=== PATIENT | male | born 1935 | race Caucasian/White ===

== ENCOUNTER 2018-03-01 10:45 | Inpatient (IN) ==
[2018-03-01] MEDS: *HR* Enoxaparin 30 MG/0.3 ML SYRINGE SQ SCH (20:19)
[2018-03-01] MEDS: Aspirin 81 MG TAB.CHEW PO SCH (20:19)
[2018-03-01] MEDS ORDERED: DOXYCYCLINE HYCLATE 50 MG PO SCH (21:00)
[2018-03-02] MEDS: *HR* Enoxaparin 30 MG/0.3 ML SYRINGE SQ SCH ×2 (04:28→16:17)
[2018-03-02 05:49] LABS: Basophils % 0.4 %; Eosinophils # 0.1 K/mcL (0.0-0.6); Eosinophils % 0.5 %; Hematocrit 31.9 % (37.5-50.1); Immature Granulocytes % 0.4 % (0-4); Lymphocytes # 2.2 K/mcL (0.6-4.6); Lymphocytes % 19.6 %; Mean Corpuscular HGB Conc 34.5 g/dL (31.6-35.5); Mean Corpuscular Hemoglobin 32.4 pg (28.0-33.3); Mean Corpuscular Volume 94.1 fL (83.0-100.0); Mean Platelet Volume 9.1 fL (9.4-12.4); Monocytes # 1.6 K/mcL (0.0-1.3); Monocytes % 14.2 %; Neutrophils # 7.2 K/mcL (1.6-8.9); Platelet Count 248 K/mcL (140-400); Red Blood Count 3.39 M/mcL (4.19-5.50); Red Cell Distribution Width 13.3 % (11.5-14.5); Segmented Neutrophils % 64.9 %
[2018-03-02 05:50] LABS: INR 1.2; Prothrombin Time 13.2 Seconds (9.4-12.1)
[2018-03-02 06:02] LABS: Alanine Aminotransferase 16 Units/L (7-52); Albumin 3.3 g/dL (3.5-5.7); Albumin/Globulin Ratio 1.3 (1.1-2.2); Alkaline Phosphatase 55 Units/L (34-104); Aspartate Amino Transferase 19 Units/L (13-39); BUN/Creatinine Ratio 15 (6-26); Bilirubin,Total 1.5 mg/dL (0.3-1.0); Blood Urea Nitrogen 16 mg/dL (8-23); Calcium 8.9 mg/dL (8.6-10.3); Carbon Dioxide 25 mEq/L (23-29); Chloride 103 mEq/L (98-107); Globulin 2.5 g/dL (2.4-3.5); Glucose 135 mg/dL (70-105); Osmolality,Calculated 287 (280-300); Potassium 3.8 mEq/L (3.5-5.1); Sodium 137 mEq/L (136-145); Total Protein 5.8 g/dL (6.4-8.9); eGFR For Non-African Americans > 60 (> 60)
[2018-03-02] MEDS: Cholecalciferol (D-3) 1,000 UNIT TABLET PO SCH (08:21)
[2018-03-02] MEDS: Aspirin 81 MG TAB.CHEW PO SCH ×2 (08:21→21:02)
[2018-03-02] MEDS: Multivit/Ca/Min/Fe/FA 1 TAB TABLET PO SCH (08:21)
[2018-03-02] MEDS ORDERED: (Memantine Hcl [Namenda Xr] 28 MG) PO SCH (09:00)
[2018-03-02] MEDS ORDERED: (Omega-3/Dha/Epa/Fish Oil [Fish Oil 1,000 Mg Softgel]) PO SCH (09:00)
--- NOTE | 2018-03-02 15:31 | Internal Med History&Physical ---
Date of Encounter: 03/02/18 Time of Encounter: 15:25 Assessment and Plan (1) Status post left hip replacement Current visit: Yes Status: Acute PT, OT, RT, will involve PM&R. (2) Normocytic anemia Current visit: Yes Status: Chronic Potentially due to blood loss from surgery. Will continue to monitor and obtain further studies as appropriate. (3) Hypertension Current visit: Yes Status: Acute Resume home losartan. Will continue to monitor BP and adjust regimen as appropriate. Qualifiers: Qualified Code(s): I10 - Essential (primary) hypertension (4) Hyperlipidemia Current visit: Yes Status: Chronic Resume home simvastatin. Qualifiers: Qualified Code(s): E78.5 - Hyperlipidemia, unspecified (5) Alzheimer disease Current visit: Yes Status: Chronic Resume home donepezil. Qualifiers: Qualified Code(s): G30.8 - Other Alzheimer's disease; F02.81 - Dementia in other diseases classified elsewhere with behavioral disturbance Internal Medicine - H&P: HPI Chief complaint: Rehab Admitted From: Hospital to Hospital Transfer Plans for Post Hospital Care: Home History of present illness: Mr. Tracy is a 82 year old male who is now admitted to our facility for rehabil itation after having a left hip replacement done at the [facility]. At the time of this encounter, there was no discharge summary from the [facility]. However, patient has no particular complaint. Patient reports no recent fever, chills, CP, palpitations, SOB, n/v, seizure, syncope, bruising, or bleeding symptoms. Past Med Surg Social Fam HX - Past Medical History Medical history: dementia, hypertension - Past Surgical History Surgical History: hip replacement, prostatectomy Additional surgical history: 2012 prostate removed, hernia repair 2013. right hip 2003 arthritis - Social History Smoking Status: Never smoker Alcohol use: none Drug use: none - Additional Family History Additional family history: Both grandfathers had cancer, but unclear which type. Internal Medicine - H&P: Meds Acetaminophen [Extra Strength Non-Aspirin] 500 mg PO Q6H PRN 03/01/18 [History] Aspirin 81 mg PO BID 03/01/18 [History] Calcium Carbonate/Vitamin D3 [Calcium 600 + Vit D Tablet] 1 each PO DAILY 03/01/18 [History] Donepezil [Aricept] 20 mg PO DAILY 03/01/18 [History] Doxycycline Hyclate [Vibramycin] 50 mg PO HS 03/01/18 [History] Losartan [Cozaar] 50 mg PO DAILY 03/01/18 [History] Meloxicam [Mobic] 7.5 mg PO DAILY 03/01/18 [History] Memantine HCl [Namenda Xr] 28 mg PO DAILY 03/01/18 [History] Multivit-Min/Iron/Folic Acid/K [Adults Multivitamin Tablet] 1 tab PO DAILY 03/01/18 [History] [place]-3/Dha/Epa/Fish Oil [Fish Oil 1,000 mg Softgel] 1 each PO DAILY 03/01/18 [History] Simvastatin [Zocor] 10 mg PO DAILY 03/01/18 [History] Tramadol HCl [Ultram] 50 mg PO Q6H PRN 03/01/18 [History] Vitamin E (Dl,Tocopheryl Acet) [Vitamin E] 400 unit PO DAILY 03/01/18 [History] Allergy/AdvReac Type Severity Reaction Status Date / Time Ether Allergy Vomiting Verified 03/01/18 16:54 All Systems PM: A 10-system review of systems was performed and is negative for pertinent findings except as documented above in the HPI. - Constitutional Vitals: Temp Pulse Resp BP Pulse Ox 98.4 F 75 18 104/68 95 03/02/18 11:16 03/02/18 11:16 03/02/18 11:16 03/02/18 11:16 03/02/18 11:16 Exam: Gen: A&Ox1 (not to time and person), overall logical conversation, pleasant, NAD. HEENT: NCAT. Neck: No palpable lymphadenopathy or thyromegaly. CV: RRR, S1S2. 1/6, systolic murmur appreciated. Lungs: CTAB. Abd: (+)BS. NDNT. Neuro: LLE weakness noted.. Skin: No rash. Ext: No pitting edema. Internal Med - H&P Results - Labs CBC & Chem 7: 03/02/18 05:45 03/02/18 05:45 Labs: Short CBC 03/02/18 Range/Units 05:45 WBC 11.1 (4.3-11.1) K/mcL Hgb 11.0 L (12.9-16.9) g/dL Hct 31.9 L (37.5-50.1) % Plt Count 248 (140-400) K/mcL Neutrophils # 7.2 (1.6-8.9) K/mcL BMP 03/02/18 05:45 Sodium 137 Potassium 3.8 Chloride 103 Carbon Dioxide 25 BUN 16 Creatinine 1.09 Glucose 135 H Calcium 8.9 Liver Function 03/02/18 Range/Units 05:45 Total Bilirubin 1.5 H (0.3-1.0) mg/dL AST 19 (13-39) Units/L ALT 16 (7-52) Units/L Alkaline Phosphatase 55 (34-104) Units/L Albumin 3.3 L (3.5-5.7) g/dL
[2018-03-02] MEDS: DOXYCYCLINE HYCLATE 50 MG PO SCH (21:03)
[2018-03-03] MEDS: *HR* Enoxaparin 30 MG/0.3 ML SYRINGE SQ SCH ×2 (05:02→16:59)
[2018-03-03 05:10] LABS: Basophils % 0.4 %; Eosinophils # 0.2 K/mcL (0.0-0.6); Eosinophils % 2.8 %; Hemoglobin 10.6 g/dL (12.9-16.9); Immature Granulocytes % 0.5 % (0-4); Lymphocytes # 1.5 K/mcL (0.6-4.6); Lymphocytes % 19.1 %; Mean Corpuscular HGB Conc 34.2 g/dL (31.6-35.5); Mean Corpuscular Hemoglobin 32.4 pg (28.0-33.3); Mean Corpuscular Volume 94.8 fL (83.0-100.0); Mean Platelet Volume 9.3 fL (9.4-12.4); Monocytes % 12.6 %; Neutrophils # 5.1 K/mcL (1.6-8.9); Platelet Count 229 K/mcL (140-400); Red Blood Count 3.27 M/mcL (4.19-5.50); Red Cell Distribution Width 13.2 % (11.5-14.5); Segmented Neutrophils % 64.6 %
[2018-03-03 05:23] LABS: BUN/Creatinine Ratio 21 (6-26); Blood Urea Nitrogen 23 mg/dL (8-23); Calcium 8.9 mg/dL (8.6-10.3); Carbon Dioxide 26 mEq/L (23-29); Chloride 103 mEq/L (98-107); Glucose 120 mg/dL (70-105); Osmolality,Calculated 285 (280-300); Potassium 3.9 mEq/L (3.5-5.1); Sodium 135 mEq/L (136-145); eGFR For Non-African Americans > 60 (> 60)
[2018-03-03] MEDS: Cholecalciferol (D-3) 1,000 UNIT TABLET PO SCH (08:19)
[2018-03-03] MEDS: Aspirin 81 MG TAB.CHEW PO SCH ×2 (08:19→20:33)
[2018-03-03] MEDS: Multivit/Ca/Min/Fe/FA 1 TAB TABLET PO SCH (08:20)
[2018-03-03] MEDS ORDERED: (Omega-3/Dha/Epa/Fish Oil [Fish Oil 1,000 Mg Softgel]) PO SCH (09:00)
--- NOTE | 2018-03-03 13:35 | Internal Med Progress Note ---
Date of Encounter: 03/03/18 Time of Encounter: 13:20 - Assessment and plan (1) Status post left hip replacement Current Visit: Yes Status: Acute Assessment and plan: PT, OT, RT, will involve PM&R. (2) Normocytic anemia Current Visit: Yes Status: Chronic Assessment and plan: Potentially due to blood loss from surgery. Overall stable counts. Will obtain FOBT. (3) Hypertension Current Visit: Yes Status: Acute Assessment and plan: Resume home losartan. Will continue to monitor BP and adjust regimen as appropriate. Qualifiers: Qualified Code(s): I10 - Essential (primary) hypertension (4) Hyperlipidemia Current Visit: Yes Status: Chronic Assessment and plan: Resume home simvastatin. Qualifiers: Qualified Code(s): E78.5 - Hyperlipidemia, unspecified (5) Alzheimer disease Current Visit: Yes Status: Chronic Assessment and plan: Resume home donepezil. Qualifiers: Qualified Code(s): G30.8 - Other Alzheimer's disease; F02.81 - Dementia in other diseases classified elsewhere with behavioral disturbance - Time Spent With Patient less than 15 minutes - Subjective Interval history: Doing well. Working with therapists. No concern at this time. - Constitutional Vitals: Temp Pulse Resp BP Pulse Ox 98.7 F 62 16 106/67 99 03/03/18 08:00 03/03/18 08:00 03/03/18 08:00 03/03/18 08:00 03/03/18 08:00 Exam: Gen: A&Ox1 (not to time and person), overall logical conversation, pleasant, NAD. HEENT: NCAT. Neck: No palpable lymphadenopathy or thyromegaly. CV: RRR, S1S2. 1/6, systolic murmur appreciated. Capillary refill < 2 seconds. Lungs: CTAB. Abd: (+)BS. NDNT. Neuro: LLE weakness noted.. Skin: No rash. Ext: No pitting edema. Internal Medicine: Result - Labs CBC & Chem 7: 03/03/18 04:59 03/03/18 04:59 Labs: Short CBC 03/03/18 Range/Units 04:59 WBC 7.8 (4.3-11.1) K/mcL Hgb 10.6 L (12.9-16.9) g/dL Hct 31.0 L (37.5-50.1) % Plt Count 229 (140-400) K/mcL Neutrophils # 5.1 (1.6-8.9) K/mcL BMP 03/03/18 04:59 Sodium 135 L Potassium 3.9 Chloride 103 Carbon Dioxide 26 BUN 23 Creatinine 1.11 Glucose 120 H Calcium 8.9 - ABG Interpretation ABG results: PT/INR, D-dimer PT 13.2 Seconds (9.4-12.1) H 03/02/18 05:45 Consult Discharge Plan - Plan Referrals: Tani Gale [Primary Care Provider] -
[2018-03-03] MEDS: traMADol 50 MG TABLET PO PRN (20:34)
[2018-03-03] MEDS: DOXYCYCLINE HYCLATE 50 MG PO SCH (20:37)
[2018-03-03] MEDS: (Omega-3/Dha/Epa/Fish Oil [Fish Oil 1,000 Mg Softgel]) PO SCH (20:38)
[2018-03-04] MEDS: traMADol 50 MG TABLET PO PRN ×2 (03:52→20:34)
[2018-03-04] MEDS: *HR* Enoxaparin 30 MG/0.3 ML SYRINGE SQ SCH ×2 (05:17→17:14)
[2018-03-04 05:56] LABS: Basophils % 0.5 %; Eosinophils # 0.3 K/mcL (0.0-0.6); Eosinophils % 3.9 %; Hematocrit 29.5 % (37.5-50.1); Immature Granulocytes % 0.9 % (0-4); Lymphocytes # 1.9 K/mcL (0.6-4.6); Lymphocytes % 25.2 %; Mean Corpuscular HGB Conc 33.9 g/dL (31.6-35.5); Mean Corpuscular Hemoglobin 32.5 pg (28.0-33.3); Mean Corpuscular Volume 95.8 fL (83.0-100.0); Mean Platelet Volume 9.4 fL (9.4-12.4); Monocytes % 13.3 %; Neutrophils # 4.1 K/mcL (1.6-8.9); Platelet Count 274 K/mcL (140-400); Red Blood Count 3.08 M/mcL (4.19-5.50); Red Cell Distribution Width 13.2 % (11.5-14.5); Segmented Neutrophils % 56.2 %
[2018-03-04 06:12] LABS: BUN/Creatinine Ratio 17 (6-26); Blood Urea Nitrogen 22 mg/dL (8-23); Calcium 8.7 mg/dL (8.6-10.3); Carbon Dioxide 29 mEq/L (23-29); Chloride 106 mEq/L (98-107); Glucose 112 mg/dL (70-105); Osmolality,Calculated 294 (280-300); Potassium 4.2 mEq/L (3.5-5.1); Sodium 140 mEq/L (136-145); eGFR For Non-African Americans 55 (> 60)
[2018-03-04] MEDS: Cholecalciferol (D-3) 1,000 UNIT TABLET PO SCH (08:37)
[2018-03-04] MEDS: Multivit/Ca/Min/Fe/FA 1 TAB TABLET PO SCH (08:37)
[2018-03-04] MEDS: Aspirin 81 MG TAB.CHEW PO SCH ×2 (08:37→20:33)
--- NOTE | 2018-03-04 12:58 | Internal Med Progress Note ---
Date of Encounter: 03/04/18 Time of Encounter: 12:56 - Assessment and plan (1) Status post left hip replacement Current Visit: Yes Status: Acute Assessment and plan: We will continue therapies as planned. Home within the next few days. (2) Alzheimer disease Current Visit: Yes Status: Chronic Assessment and plan: Nursing aware of his attempt to leave the unit and will change of alarms. No clinical change. Qualifiers: Alzheimer's disease onset: unspecified onset Dementia behavioral di sturbance: without behavioral disturbance Qualified Code(s): G30.9 - Alzheimer's disease, unspecified; F02.80 - Dementia in other diseases classified elsewhere without behavioral disturbance (3) Normocytic anemia Current Visit: Yes Status: Chronic Assessment and plan: Clinically stable and potentially complicated by surgery. (4) Hypertension Current Visit: Yes Status: Acute Assessment and plan: Clinically stable and adequately controlled. Qualifiers: Hypertension type: essential hypertension Qualified Code(s): I10 - Essential (primary) hypertension (5) Hyperlipidemia Current Visit: Yes Status: Chronic Assessment and plan: We will continue current regimen. Qualifiers: Hyperlipidemia type: unspecified Qualified Code(s): E78.5 - Hyperlipidemia, unspecified - Subjective Interval history: Patient is without complaint. Review of systems is unreliable because of his dementia and disorientation. He is oriented only to person. He is not oriented to place or time. He has no recollection of his surgery. Patient has no complaint of chest discomfort, dyspnea, orthopnea, palpitations, nausea or vomiting, constipation or diarrhea, other changes in bowel habits, difficulty with urination, rash or itching, or other new complaints, except as mentioned above. Review of systems is otherwise negative. I discussed management of her care with nursing staff. Later, he was about to leave the unit on his own and had escaped his chair alarm. - Constitutional Vitals: Temp Pulse Resp BP Pulse Ox 97.7 F 65 18 111/72 95 03/04/18 06:48 03/04/18 06:48 03/04/18 06:48 03/04/18 06:48 03/04/18 06:48 Exam: Examination: (Except as mentioned above): General: In no apparent distress. Alert and oriented 3. Nondiaphoretic. Head: Atraumatic and normocephalic. Respiratory: No use of accessory muscles. Lungs are clear throughout. Normal airflow. Cardiovascular: Regular rate and rhythm without murmur appreciated. Abdomen: Bowel sounds are normal. No hepatosplenomegaly mass or tenderness appreciated. Obese and therefore difficult to palpate deeply. Extremities: No cyanosis clubbing or edema. Patient is examined upright in chair and this also limits exam. Skin: Warm and non-diaphoretic with no new lesions noted. Internal Medicine: Result - Labs CBC & Chem 7: 03/04/18 05:40 03/04/18 05:40 Labs: Short CBC 03/04/18 Range/Units 05:40 WBC 7.4 (4.3-11.1) K/mcL Hgb 10.0 L (12.9-16.9) g/dL Hct 29.5 L (37.5-50.1) % Plt Count 274 (140-400) K/mcL Neutrophils # 4.1 (1.6-8.9) K/mcL BMP 03/04/18 05:40 Sodium 140 Potassium 4.2 Chloride 106 Carbon Dioxide 29 BUN 22 Creatinine 1.26 Glucose 112 H Calcium 8.7 - ABG Interpretation ABG results: PT/INR, D-dimer PT 13.2 Seconds (9.4-12.1) H 03/02/18 05:45 Consult Discharge Plan - Plan Referrals: Tani Gale [Primary Care Provider] -
[2018-03-04] MEDS: DOXYCYCLINE HYCLATE 50 MG PO SCH (20:34)
[2018-03-04] MEDS: (Omega-3/Dha/Epa/Fish Oil [Fish Oil 1,000 Mg Softgel]) PO SCH (20:34)
[2018-03-05] MEDS: *HR* Enoxaparin 30 MG/0.3 ML SYRINGE SQ SCH ×2 (05:32→16:28)
[2018-03-05] MEDS: traMADol 50 MG TABLET PO PRN ×2 (06:20→20:43)
[2018-03-05] MEDS: Multivit/Ca/Min/Fe/FA 1 TAB TABLET PO SCH (08:03)
[2018-03-05] MEDS: Aspirin 81 MG TAB.CHEW PO SCH ×2 (08:03→20:43)
[2018-03-05] MEDS: Cholecalciferol (D-3) 1,000 UNIT TABLET PO SCH (08:04)
--- NOTE | 2018-03-05 13:09 | Internal Med Progress Note ---
Date of Encounter: 03/05/18 Time of Encounter: 13:07 - Assessment and plan (1) Status post left hip replacement Current Visit: Yes Status: Acute Assessment and plan: Continue PT and OT. Will follow progress. Pain controlled. Follow up with ortho as scheduled. (2) Hypertension Current Visit: Yes Status: Chronic Assessment and plan: Told with current medication. Monitor blood pressure. Qualifiers: Hypertension type: essential hypertension Qualified Code(s): I10 - Essenti al (primary) hypertension (3) Alzheimer disease Current Visit: Yes Status: Chronic Assessment and plan: Assist with ADLs. Progressive disease. Expect decline. Monitor neurological status. Qualifiers: Alzheimer's disease onset: unspecified onset Dementia behavioral disturbance: without behavioral disturbance Qualified Code(s): G30.9 - Alzheimer's disease, unspecified; F02.80 - Dementia in other diseases classified elsewhere without behavioral disturbance - Time Spent With Patient less than 15 minutes - Subjective Interval history: Participating well with therapy. Pain controlled. Ambulating with Walker. at bedside. Scheduled to discharge to home tomorrow. - Constitutional Vitals: Temp Pulse Resp BP Pulse Ox 98.5 F 59 16 112/68 96 03/05/18 07:42 03/05/18 07:42 03/05/18 07:42 03/05/18 07:42 03/05/18 07:42 General appearance: Present: A&O X 1, pleasant, no acute distress, answers questions appropriately - Head Head exam: Present: atraumatic, normocephalic - Eye Eye exam: Present: PERRL, conjuntiva pink, sclera anicteric Pupils: Present: PERRL - Neck Neck exam general surgery: Present: supple, trachea midline. Absent: lymphadenopathy - Respiratory Respiratory exam: Present: CTAB. Absent: accessory muscle use, rales, rhonchi, wheezes - Cardiovascular Cardiovascular exam: Present: RRR, +S1, +S2. Absent: diastolic murmur, gallop, rubs, systolic murmur - GI/Abdominal GI/Abdominal exam: Present: normal bowel sounds, soft, no peritoneal signs. Absent: distended, tenderness - Extremities Exam Extremities exam: Present: warm, radial pulses palpable and symmetrical. Absent: calf tenderness, cyanotic, pedal edema - Incison Comments: Left hip incision dressing dry and intact. - Neurological Exam Neurological exam: Present: CN II-XII intact, oriented X3, no focal deficits. Absent: pronater drift, facial droop, speech deficit - Skin Skin exam: Present: dry, intact Internal Medicine: Result - Labs CBC & Chem 7: 03/04/18 05:40 03/04/18 05:40 - ABG Interpretation ABG results: PT/INR, D-dimer PT 13.2 Seconds (9.4-12.1) H 03/02/18 05:45 Consult Discharge Plan - Plan Referrals: Tani Gale [Primary Care Provider] -
[2018-03-05] MEDS: DOXYCYCLINE HYCLATE 50 MG PO SCH (20:43)
[2018-03-05] MEDS: (Omega-3/Dha/Epa/Fish Oil [Fish Oil 1,000 Mg Softgel]) PO SCH (20:43)
[2018-03-06] MEDS: traMADol 50 MG TABLET PO PRN (05:35)
[2018-03-06] MEDS: *HR* Enoxaparin 30 MG/0.3 ML SYRINGE SQ SCH (05:35)
[2018-03-06 07:08] VITALS: BP 102/63
[2018-03-06] MEDS: Aspirin 81 MG TAB.CHEW PO SCH (08:43)
[2018-03-06] MEDS: Cholecalciferol (D-3) 1,000 UNIT TABLET PO SCH (08:44)
[2018-03-06] MEDS: Multivit/Ca/Min/Fe/FA 1 TAB TABLET PO SCH (08:44)
--- NOTE | 2018-03-06 09:38 | Discharge Summary ---
Addendum entered and electronically signed by Reynold Thomas DO 03/06/18 11:30: I have personally performed a face to face evaluation on this patient. I have reviewed and agree with the care plan. History and Exam by me shows: I have personally performed a face to face evaluation on this patient. I have reviewed and agree with the care plan. History and Exam by me shows: I have personally performed a face to face evaluation on this patient. I have reviewed and agree with the care plan. History and Exam by me shows: Original Note: Date of Encounter: 03/06/18 Time of Encounter: 09:35 - Discharge Diagnosis (1) Status post left hip replacement Priority: Primary Status: Acute Comments: Patient was admitted to this facility for rehabilitation due to deconditioning secondary to a left hip replacement. Surgical site appears to bed feeling well and incision looks healthy. Patient has progressed well with physical therapy. Patient continues to have some confusion but responds well to cueing. Patient is to be discharged to home with follow-up with his orthopedic surgeon and primary care physician. Patient is continue physical therapy as outpatient at this facility. (2) Normocytic anemia Priority: Secondary Status: Chronic Comments: No acute issues at this time of discharge. Patient's hemoglobin was 10. Patient is to continue follow-up with PCP. (3) Hypertension Priority: Secondary Status: Chronic Comments: Vital signs remained stable during his stay at this facility. We will continue with current home medications and follow-up with PCP. Qualifiers: Hypertension type: essential hypertension Qualified Code(s): I10 - Essential (primary) hypertension (4) Alzheimer disease Priority: Secondary Status: Chronic Comments: Patient continues with mild confusion. Patient is able to follow simple commands and answer simple questions appropriately but does have confusion during complex questioning. Patient interacts well with staff with no behavior issues reported. We will continue follow-up with PCP. Patient to continue with home medications Qualifiers: Alzheimer's disease onset: unspecified onset Dementia behavioral disturbance: without behavioral disturbance Qualified Code(s): G30.9 - Alzheimer's disease, unspecified; F02.80 - Dementia in other diseases classified elsewhere without behavioral disturbance Hospital course: Mr. Tracy is a 82 year old male, who is now admitted to our facility for rehabilitation after having a left hip replacement done at the [facility] Patient was admitted to this facility for rehabilitation due to deconditioning secondary to his left total hip replacement. No acute issues has occurred during his stay at this facility. Surgical incision appears to be healing well and appears healthy. Patient has progressed well with physical therapy. Patient continues to require some cueing due to his history of Alzheimer's. Patient will be discharged to home with continued physical therapy by outpatient. Patient has follow-up with orthopedic surgeon and PCP and continue with current home medications. Discharge discussed with: patient, family Time spent discussing smoking cessation with patient: 3 to 10 minutes - Time Spent with Patient Total time spent providing and/or coordinating discharge services: Less than 30 minutes - Discharge Medications Home Medications: Acetaminophen [Extra Strength Non-Aspirin] 500 mg PO Q6H PRN 03/01/18 [History] Aspirin 81 mg PO BID 03/01/18 [History] Calcium Carbonate/Vitamin D3 [Calcium 600 + Vit D Tablet] 1 each PO DAILY 03/01/18 [History] Donepezil [Aricept] 20 mg PO DAILY 03/01/18 [History] Doxycycline Hyclate [Vibramycin] 50 mg PO HS 03/01/18 [History] Losartan [Cozaar] 50 mg PO DAILY 03/01/18 [History] Meloxicam [Mobic] 7.5 mg PO DAILY 03/01/18 [History] Memantine HCl [Namenda Xr] 28 mg PO DAILY 03/01/18 [History] Multivit-Min/Iron/Folic Acid/K [Adults Multivitamin Tablet] 1 tab PO DAILY 03/01/18 [History] [place]-3/Dha/Epa/Fish Oil [Fish Oil 1,000 mg Softgel] 1 each PO DAILY 03/01/18 [History] Simvastatin [Zocor] 10 mg PO DAILY 03/01/18 [History] Tramadol HCl [Ultram] 50 mg PO Q6H PRN 03/01/18 [History] Vitamin E (Dl,Tocopheryl Acet) [Vitamin E] 400 unit PO DAILY 03/01/18 [History] Allergies/Adverse Reactions: Allergy/AdvReac Type Severity Reaction Status Date / Time Ether Allergy Vomiting Verified 03/01/18 16:54 Date of admission: 03/01/18 16:32 Primary care physician: Tani Gale Consults: 03/01/18 17:26 Consult to Occupational Therapy [CONS] Routine Comment: Evaluate, develop and implement POC Reason for Consult: s/p left hip arthroplasty Does patient have active BEDREST order?: No Is patient medically & hemodynamically stable?: Yes Patient assessed for mobility or mobilized this visit?: Yes Consult to Physical Medicine/Rehab [CONS] Routine Reason for Consult: s/p left hip arthroplasty Call Completed: No Consult to Physical Therapy [CONS] Routine Comment: Evaluate, develop and implement POC Reason for Consult: s/p left hip arthroplasty Does patient have active BEDREST order?: No Is patient medically & hemodynamically stable?: Yes Patient assessed for mobility or mobilized this visit?: Yes Consult to Recreational Therapy [CONS] Routine Comment: Evaluate, develop and implement POC Consult to Fire Supervisor [CONS] Routine Reason for SW Consult: d/c planning Discharging clinician: Reynold Thomas - Constitutional Vitals: Temp Pulse Resp BP Pulse Ox 98.2 F 61 16 102/63 92 03/06/18 07:00 03/06/18 07:00 03/06/18 07:00 03/06/18 07:00 03/06/18 07:00 General appearance: Present: A&O X 1, A&O X 2, pleasant, no acute distress, answers questions appropriately Exam: Patient noted to have significant difficulty with complex questioning. Patient was disoriented to time but otherwise answers questions appropriately - Head Head exam: Present: atraumatic, normocephalic - Eye Eye exam: Present: PERRL, conjuntiva pink, sclera anicteric Pupils: Present: PERRL - Neck Neck exam general surgery: Present: supple, trachea midline. Absent: lymphadenopathy - Respiratory Respiratory exam: Present: CTAB. Absent: accessory muscle use, rales, rhonchi, wheezes - Cardiovascular Cardiovascular exam: Present: RRR, +S1, +S2. Absent: diastolic murmur, gallop, rubs, systolic murmur - GI/Abdominal GI/Abdominal exam: Present: normal bowel sounds, soft, no peritoneal signs. Absent: distended, tenderness - Extremities Exam Extremities exam: Present: warm, radial pulses palpable and symmetrical. Absent: calf tenderness, cyanotic, pedal edema Additional comments: Left hip surgical incision appears to be healing well. Incision is dry and intact. - Neurological Exam Neurological exam: Present: CN II-XII intact, oriented X3, no focal deficits. Absent: pronater drift, facial droop, speech deficit - Skin Skin exam: Present: dry, intact - Patient Status Disposition: Home, Self-Care Condition: Good Functional capacity at discharge: uses cane/walker Overall status at discharge: patient is progressing back to baseline - Discharge Instructions Follow Up With: Tani Gale [Primary Care Provider] - - Diet and Activity Activity: ambulate only with your walker, as per physical therapy Diet: low fat, low cholesterol
== END 2018-03-06 14:15 | disposition home or self-care (01) | DRG 561 ==
LOC: INPGRE 16:32